=== PATIENT | female | born 1940 | race Caucasian/White ===

== ENCOUNTER → 2018-03-23 10:08 | Outpatient (BNVA) | payer MEDICARE, SELFPAY | PROVIDERS: PCP Family Medicine; Visit Provider Orthopaedic Surgery | DX: M17.11 Unilateral primary osteoarthritis, right knee (principal) | CPT/HCPCS: 20610; 99211; 99213; J1040 ==

== ENCOUNTER → 2018-07-29 09:46 | Outpatient (BNVA) | payer MEDICARE, SELFPAY | PROVIDERS: PCP Family Medicine; Referring Provider Family Medicine; Visit Provider Orthopaedic Surgery | DX: M17.11 Unilateral primary osteoarthritis, right knee (principal) | CPT/HCPCS: 20610; 99211; 99213; J1040 ==

== ENCOUNTER 2018-08-26 10:37 | Outpatient (CLI) | payer MEDICARE, SELFPAY ==
[2018-08-26 12:25] LABS: Bilirubin Negative (Negative); Blood Negative (Negative); Clarity Clear; Glucose Negative (Negative); Ketones Negative (Negative); Leukocyte Esterase Negative (Negative); Nitrite Negative (Negative); Urobilinogen 0.2 EU/dL (Up TO 0.2); pH 7.5 (5-8)
[2018-08-26 12:35] LABS: Abs Immature Grans 0.01 k/cumm (0.0-0.09); Absolute Basophil Count 0.04 k/cumm (0.0-0.2); Absolute Eosinophil Count 0.19 k/cumm (0.0-0.7); Absolute Lymphocyte Count 1.68 k/cumm (1.2-3.4); Absolute Monocyte Count 0.59 k/cumm (0.11-0.7); Absolute Neutrophil Count 3.82 k/cumm (1.2-6.7); Basophils % 0.6; HCT 43.3 % (36.0-46.0); Immature Grans % 0.2; Lymphocytes % 26.5; Mean Corp. HGB Concentration 32.3 g/dL (32.0-36.0); Mean Corpuscular Hemoglobin 29.4 pg (27.0-33.0); Mean Platelet Volume 11.5 fL (8.0-11.0); Monocytes % 9.3; Neutrophils % 60.4; Platelet Count 260 x1000/uL (130-400); RBC 4.76 m/cumm (4.00-5.20); White Blood Cell Count 6.33 k/cumm (4.4-10.8)
[2018-08-26 13:19] LABS: BUN 17 mg/dL (7-18); Chloride 101 mmol/L (98-107); Glucose 95 mg/dL (70-100); Potassium 3.7 mmol/L (3.5-5.1); Sodium 141 mmol/L (136-145)
== END 2018-08-26 10:57 ==
PROVIDERS: PCP Family Medicine; Visit Provider Orthopaedic Surgery
DX: M25.561 Pain in right knee (principal); M17.11 Unilateral primary osteoarthritis, right knee; I10 Essential (primary) hypertension; Z01.818 Encounter for other preprocedural examination
CPT/HCPCS: 36415; 80051; 82947; 84520; 81003; 82565; 85025; 93005; 93010

== ENCOUNTER 2018-09-08 05:56 | Inpatient (IN) | payer MEDICARE, SELFPAY ==
[2018-09-08] VITALS (16 sets, daily range): BP systolic 105–150; BP diastolic 67–105; PULSE 80–97; RESP 9–20; TEMP 36.6–37.4; O2SAT 31–96
[2018-09-08] MEDS: Lactated Ringers 1,000 ML 80 ML IV ×2 (06:41→09:44)
[2018-09-08] MEDS: Bupivacaine 0.25% Pres-Free 30 ML VIAL ×2 (07:10→09:12)
[2018-09-08] MEDS: Bupivacaine LIPOSOME/PF 133 MG/10 ML VIAL IJ (07:10)
[2018-09-08] MEDS: ceFAZolin 2 GM/50 ML BAG IVPB (07:33)
[2018-09-08] MEDS: Hydrogen Peroxide 3% 480 ML BTL (08:39)
--- NOTE | 2018-09-08 10:18 | DI.RAD_ITS ---
SYMPTOM/DIAGNOSIS: RT TOTAL KNEE ARTHROPLASTY,DJD RT KNEE RIGHT KNEE: AP and lateral projections post op reveal a TKA, the components of which are in excellent position. Surrounding bone intact.
--- NOTE | 2018-09-08 11:27 | ROE_ITS ---
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 PROCEDURE: Right total knee arthroplasty, cemented. SURGEON: Yazan Smith M.D. ASSESSMENT: Honey Gutierrez PA-C ANESTHESTETIC: Adductor canal block followed by general via LMA by Radha Rashid CRNA PREP: ChloraPrep. INDICATIONS: This patient is a 78-year-old female who has failed conservative management for osteoarthritis involv ing her right knee. On her radiographs, she had primary involvement of the medial compartment with an associated varus deformity. There was also severe patellofemoral arthritis. She had failed response to Synvisc and corticosteroids. She was anxious to proceed with surgical intervention. She wanted to be able to be recovered by late spring because she enjoys spending her [place] a campground. I rev iewed with the patient and her the planned operative procedure, its risks and benefits. They understood and wished to proceed. I saw the patient in the [facility] area, and marked her r ight leg. I re-reviewed the planned operative intervention. She consented to an adductor canal block, followed by General anesthesia. DESCRIPTION OF PROCEDURE: The patient was brought to Operating Suite, after the Adductor canal block was performed. She then un derwent uneventful induction of general anesthesia via LMA. She received 2 grams of Ancef as a prophy lactic antibiotic. A pneumatic tourniquet was applied to her proximal thigh. After the right lower extremity was prepped and draped, and after timeout was instituted verifying the planned procedure, t he limb was elevate to exsanguinate it for 2 minutes. I then inflated the tourniquet to 380 mmHg. andana anterior approach for a total knee arthroplasty was utilized. The skin and subcutaneous tissue s were incised and hemostasis was controlled by electrocautery. A medial parapatellar arthrotomy was performed. The superficial medial collateral ligament was carefu lly elevated off the tibia, and a subperiosteal release so as to prevent any injury to the ligamentou s structure. 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 She had a significant flexion contracture and as a result, I felt that she would need urbano e soft tissue releases posteriorly, as well as more generous distal femoral resection. I used an intramedullary guide robyn to resect the distal femur with a 6-degree valgus bushing. This wa s done after osteophytes over the medial compartment, lateral compartment and the patellofemoral join t were trimmed with a rongeur and smoothed with a file. A 12-mm distal femoral resection cut was done . Anterior and posterior cuts were then made and I felt that a size 3 [employer] femoral component whi ch was posterior cruciate retaining would have the most appropriate fit. The trial prosthesis fit wel l. Next, the tibial plateau was assessed. The ACL had been resected at the beginning of the procedure an d the medial meniscus had also been resected. I then performed a complete lateral meniscectomy. The p opliteus tendon was identified and protected. Using an external alignment jig, a 3-degree posterior s everardo cut was made on the proximal tibia. This was done by first centering the alignment jig over the center part of the knee and adjusting for the varus deformity. Therefore, this resected more bone fro m the lateral compartment than the medial compartment. It was felt that a size 3 tibial component wou ld have the most appropriate fit. A reduction was performed with the tibial tray and 10 mm insert, an d the knee came out to full extension and flexion. Care was taken to remove bone that extended medial ly on the femur beyond the posterior condyles of the femoral component. This resulted in resecting ab out 3 millimeters of bone. I also carefully elevated the gastrocnemius origin with a 1/2-inch periost eal elevator. The patella was measured with a caliper, it measured approximately 20.5 millimeters. T his was indicative of the significant patellofemoral arthritis. I used a combination of a cutting ji g and a freehand technique to resect the patellar surface flat. It was felt that a 35-mm Tripronged p olyethylene component would have the most appropriate fit. Holes were drilled for the fixation lugs of the trial insert and the thickness of the patella was res tored at 22 millimeters, thereby thickening it by 1.5 millimeters. The knee was carefully irrigated a nd all extraneous debris, osteophytes and loose bodies were removed. The tibial component was cemente d with methylmethacrylate containing gentamicin. This was mixed in a vacuum chamber and then placed. The actual size 3 tibial component fit well. Prior to its insertion, instrumentation was used to cre ate a channel for the tibial rotating platform Polyethylene insert. After the cement cured over the c ourse of 12 minutes. Care was taken to make sure any extraneous cement had been removed. I then mixed a second batch of Methylmethacrylate with gentamicin for cementation of the femoral and patellar com ponents. This also was a size 3 posture cruciate retaining component. Standard pressurization techni ques were utilized and extraneous cement was removed. The cement was allowed to cure. The interface b etween the femoral component and the femur, and the tibial component and the tibia looked excellent. There was good interdigitation. There was no extraneous cement. Likewise, the patellar component show ed good fixation. The knee was cycled through a range of motion with a trial 10-mm thick Polyethylene insert. There was no evidence of bearing spinout. There was no evidence that there was excessive tig htness of the posterior capsule or MCL. The actual size 10 x size 3 rotating platform tibial insert w as placed. The patella was reduced and the knee cycled through a range of motion. There is no evidenc e of bearing spinout. There was no restriction in flexion or extension. AT this point a Betadine irrigation protocol was instituted. Dilute Betadine consisting of 17.5 cc an d 500 cc of saline was placed in the knee over a course of 3 minutes. This was followed by irrigation with sterile saline of 1000 cc. The medial parapatellar arthrotomy was then closed with sutures of # 1- Vicryl in a [id number] fashion. The proximal quad tendon was closed in two layers. The perite non was closed over the medial incision with #2-0 Vicryl. The subcutaneous tissues were closed with # 2-0 Vicryl. At this point, tranexamic acid 3 grams and 100 cc of saline was placed intra-articularly through an # 18-guage needle to minimize blood loss postoperatively. The skin was closed with vesta. The tourniq uet was deflated. Hemostasis was under control. There was excellent return of circulation to the foot . The wound was dressed with Xeroform gauze, 4x4s, ABD Pads, a 6-inch confirming gauze bandage, two 6 -inch Roger wraps, a Cryo/Cuff, commercial knee immobilizer. The patient was taken to the [facility] in satisfactory condition tolerating the procedure well. ESTIMATED BLOOD LOSS: Blood loss was essentially zero.
[2018-09-08] MEDS: POTASSIUM CHLORIDE/D5-0.9%NACL 1,000 ML 100 MEQ IV ×2 (11:47→21:06)
[2018-09-08] MEDS: Acetaminophen 325 MG TAB 650 MG PO ×2 (14:52→21:11)
--- NOTE | 2018-09-08 16:47 | PT.INIE ---
Date of service: 09/08/18 Time of Service: 13:02 PT Notes Inpatient Physical Therapy Evaluation Date: 09/08/2018 Referring Doctor: Yazan Morgan MD PT Orders: PT CONSULT: 78-year-old white female status post right total knee arthroplasty 09/08/2018. Up in chair today if comfortable and patient is willing. Weightbearing as tolerated on right with walker. CPM and Cryocuff protocols Precautions: Fall. Standard. WBAT on right LE. Knee immobilizer on when OOB. 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 She is status post cemented right total knee arthroplasty referred to physical therapy on postoperative day 0 for functional mobility training, joint range of motion and strengthening, gait and balance training, and patient education and training. PMHX: Medical History Anxiety (Chronic) Anemia (Chronic) GI bleed (Chronic) Surgical Histry History of colonoscopy (Chronic) History of esophagogastroduodenoscopy (EGD) (Chronic) Social History/Home Situation: Patient lives with Seth in a 2-floor house with 1 step to enter, no rail on either side. She is independent with all aspects of ADLs without use of any adaptive equipment nor assistive ambulatory device although she states that she has a straight cane that she very rarely uses. Current Functional Limitations: Patient requires physical assistance and front wheeled walker for all transfers and ambulation tasks. Equipment Owned/DME: [place] Subjective: Patient and daughter was present when this PT came in for physical therapy evaluation and treatment which patient were agreeable to. Patient reports no pain on right LE but states that the right knee feels stiff and tight. She denies dizziness/lightheadedness as well as nausea when seated at edge of bed and with ambulation activity. Objective: General Observation: IV in the right UE. Mandel catheter in place. Anti-DVT pump on left leg. Cryocuff on right knee with right knee immobilizer open. DAREN wraps from mid thigh through distal leg. Mental Status: Alert and oriented x3 Pain: 0/10. Vital Signs: 136/79 mmHg, 95% on 1 L of oxygen, 90 bpm. ROM: Right Upper Extremity: Shoulder Flexion WFL. Shoulder abduction WFL. Elbow flexion WFL. Wrist flexion WFL. Functional opening and closing of hand WFL. Left Upper Extremity: Shoulder Flexion WFL. Shoulder abduction WFL. Elbow flexion WFL. Wrist flexion WFL. Functional opening and closing of hand WFL. Right Lower Extremity: Hip flexion 0-90 degrees. Hip abduction WFL. Knee flexion 0-90 degrees with active range of motion slightly limited by DAREN wraps. Knee extension -20 degrees. Ankle dorsiflexion WFL. Ankle plantarflexion WFL. Patient was able to perform straight leg raises with right knee immobilizer on to about 60 degrees painlessly. Left Lower Extremity: Hip flexion WFL. Hip abduction WFL. Knee flexion WFL. Ankle dorsiflexion WFL. Ankle plantarflexion WFL. STRENGTH: Right Upper Extremity: Shoulder flexors 4+/5. Shoulder abductors 4+/5. Elbow flexors 4+/5. Elbow extensors 4+/5. Hardware Test Engineer strong. Left Upper Extremity: Shoulder flexors 4+/5. Shoulder abductors 4+/5. Elbow flexors 4+/5. Elbow extensors 4+/5. Hardware Test Engineer strong. Right Lower Extremity: Hip flexors 3-/5. Hip abductors 4/5. Knee flexors3-/5. Knee extensors 3-/5. Ankle dorsiflexors 4/5. Ankle plantarflexors 4/5. Left Lower Extremity:Hip flexors 5/5. Hip abductors 5/5. Knee flexors 5/5. Knee extensors 5/5. Ankle dorsiflexors 5/5. Ankle plantarflexors 5/5. Sensation: Intact to bilateral LEs as to pain and pressure BED MOBILITY LEVELS/TRANSFERS: Rolling CGA Supine to sit minimal assist. Patient's blood pressure did shoot up to 147/19 mmHg upon sitting up but with the rest went back down to 123/82 mmHg. Nurse updated. Sit to supine minimal assist Sit to stand minimal assist. Patient was saturating very well at 94-96% at 1 L and so nurse decided to take off oxygen at the start of this activity. Stand to sit minimal assist Bed to chair minimal assist Chair to bed minimal assist Gait: Patient tolerated level surface in room ambulation for 5 steps forward and 5 steps backward using FWW with minimal assist of PT and standby assist of an [employer] for safety with knee immobilizer on the right. No complaints of dizziness nor lightheadedness were received. Patient states no increase in pain level during and after activity. Blood pressure after activity was 134/80 3 mmHg with with 92% on room air and 103 bpm. Balance: Static Sitting: Good Dynamic Sitting: Good Static Standing: Fair Dynamic Standing: Fair Special Tests: Mobility Limitations Standardized Measure [facility] AM-PAC 6 clicks Basic Mobility Inpatient Short Form: Raw Score: 17 CMS Score: 50.57% deficit Informed Consent/Education: Patient instructed in purpose of PT consult and plan of care. Patient and family were also educated about the benefits of the use of CPM machine in terms of reducing pain, stiffness, and swelling while maximizing passive range of motion on the right knee joint. Patient was also instructed about quadriceps setting on the right held for 5 counts each time repeated 5-10 times while in bed when CPM is not in use. Assessment: Assessment: Patient is a 78 year old female referred to physical therapy services with the diagnosis of end-stage osteoarthritis of the right knee with right knee flexion contracture and varus deformity status post cemented right total knee arthroplasty on postoperative day 0. Patient presents with clinical signs and symptoms consistent with current/admitting diagnoses and postoperative status that have resulted to mobility limitations, gait instability, generalized weakness, and impairment/limitation of motor control as demonstrated by the following impairment level findings: 1. Decreased strength to R LE major muscle groups 2. Impaired sitting/standing balance 3. Impaired activity tolerance 4. Limitation of joint range of motion in right knee 5. Stiffness/tightness in her right knee Impairments are contributing to the following functional limitations: 1. Dependent bed mobility skills 2. Increased dependence with transfers 3. Inability to safely ambulate without assistive device and physical assistance 4. Increase completion time for mobility ADL performance 5. Increased fall risk 6. Inability to negotiate steps alone safely Patient is assessed as a Moderate 25763 complexity based on the following: History: Patient is a 78-year-old female with end-stage osteoarthritis of right knee with right knee flexion contracture and varus deformity status post cemented right total knee arthroplasty who previously was independent with all aspects of ADLs with good family support. Examination: Underlying impairments and functional limitations resulting to AM?PAC score of 17 and an equivalent CMS score of 50.57% deficit Presentation: Evolving Decision Makin moderate complexity Goals: Goals X1 week 1. Supine-Sit independent 2. Sit-Supine independent 3. Sit-Stand independent 4. Stand-Sit independent 5. Bed-Chair independent 6. Chair-Bed independent 7. Independent gait on level surface with use of least restrictive device for at least 300 feet without report of pain nor dyspnea 8. Independent stair negotiation while holding onto bilateral rails for at least 10 steps without report of pain nor dyspnea 9. Independent with home exercise program 10. Good static and dynamic standing balance/tolerance Plan of Care/Treatment Plan: 1-2x/day, 7 days/week x 1 week. Plan of care has been reviewed with the ACID PURIFIER providing the service under Physical Therapy direction. Initiate Physical Therapy intervention for strengthening, bed mobility, transfers, gait, stairs, balance training, use of assistive device. DISCHARGE RECOMMENDATIONS: Patient will benefit from the use of a front wheeled walker at discharge destination. Patient and family are very much looking forward to having patient go home as soon as possible so it is highly recommended that home health physical therapy follows her up for continued functional mobility training, home safety evaluation, and patient/family/caregiver education and training for fall reduction strategies. TREATMENT CODE/TIME: 9716 230 minutes, 74531 38 minutes, 33996 10 minutes beginning at 13:02 PM. Thank you very much for this referral. Aura Oreilly, PT, DPT, CLT [facility], PT and associates
--- NOTE | 2018-09-08 17:22 | IN_ITS ---
Date of service: 09/08/18 Time of Service: 13:02 PT Notes Inpatient Physical Therapy Evaluation Date: 09/08/2018 Referring Doctor: Yazan Morgan MD PT Orders: PT CONSULT: 78-year-old white female status post right total knee arthroplasty 09/08/2018. Up in chair today if comfortable and patient is willing. Weightbearing as tolerated on right with walker. CPM and Cryocuff protocols Precautions: Fall. Standard. WBAT on right LE. Knee immobilizer on when OOB. 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 She is status post cemented right total knee arthroplasty referred to physical therapy on postoperative day 0 for functional mobility training, joint range of motion and strengthening, gait and balance training, and patient education and training. PMHX: Medical History Anxiety (Chronic) Anemia (Chronic) GI bleed (Chronic) Surgical Histry History of colonoscopy (Chronic) History of esophagogastroduodenoscopy (EGD) (Chronic) Social History/Home Situation: Patient lives with Seth in a 2-floor house with 1 step to enter, no rail on either side. She is independent with all aspects of ADLs without use of any adaptive equipment nor assistive ambulatory device although she states that she has a straight cane that she very rarely uses. Current Functional Limitations: Patient requires physical assistance and front wheeled walker for all transfers and ambulation tasks. Equipment Owned/DME: OR Subjective: Patient and daughter was present when this PT came in for physical therapy evaluation and treatment which patient were agreeable to. Patient reports no pain on right LE but states that the right knee feels stiff and tight. She denies dizziness/lightheadedness as well as nausea when seated at edge of bed and with ambulation activity. Objective: General Observation: IV in the right UE. Mandel catheter in place. Anti-DVT pump on left leg. Cryocuff on right knee with right knee immobilizer open. DAREN wraps from mid thigh through distal leg. Mental Status: Alert and oriented x3 Pain: 0/10. Vital Signs: 136/79 mmHg, 95% on 1 L of oxygen, 90 bpm. ROM: Right Upper Extremity: Shoulder Flexion WFL. Shoulder abduction WFL. Elbow flexion WFL. Wrist flexion WFL. Functional opening and closing of hand WFL. Left Upper Extremity: Shoulder Flexion WFL. Shoulder abduction WFL. Elbow flexion WFL. Wrist flexion WFL. Functional opening and closing of hand WFL. Right Lower Extremity: Hip flexion 0-90 degrees. Hip abduction WFL. Knee flexion 0-90 degrees with active range of motion slightly limited by DAREN wraps. Knee extension -20 degrees. Ankle dorsiflexion WFL. Ankle plantarflexion WFL. Patient was able to perform straight leg raises with right knee immobilizer on to about 60 degrees painlessly. Left Lower Extremity: Hip flexion WFL. Hip abduction WFL. Knee flexion WFL. Ankle dorsiflexion WFL. Ankle plantarflexion WFL. STRENGTH: Right Upper Extremity: Shoulder flexors 4+/5. Shoulder abductors 4+/5. Elbow flexors 4+/5. Elbow extensors 4+/5. Mitering Machine Operator strong. Left Upper Extremity: Shoulder flexors 4+/5. Shoulder abductors 4+/5. Elbow flexors 4+/5. Elbow extensors 4+/5. Mitering Machine Operator strong. Right Lower Extremity: Hip flexors 3-/5. Hip abductors 4/5. Knee flexors3-/5. Knee extensors 3-/5. Ankle dorsiflexors 4/5. Ankle plantarflexors 4/5. Left Lower Extremity:Hip flexors 5/5. Hip abductors 5/5. Knee flexors 5/5. Knee extensors 5/5. Ankle dorsiflexors 5/5. Ankle plantarflexors 5/5. Sensation: Intact to bilateral LEs as to pain and pressure BED MOBILITY LEVELS/TRANSFERS: Rolling CGA Supine to sit minimal assist. Patient's blood pressure did shoot up to 147/19 mmHg upon sitting up but with the rest went back down to 123/82 mmHg. Nurse updated. Sit to supine minimal assist Sit to stand minimal assist. Patient was saturating very well at 94-96% at 1 L and so nurse decided to take off oxygen at the start of this activity. Stand to sit minimal assist Bed to chair minimal assist Chair to bed minimal assist Gait: Patient tolerated level surface in room ambulation for 5 steps forward and 5 steps backward using FWW with minimal assist of PT and standby assist of an PIE BAKERY LABORER for safety with knee immobilizer on the right. No complaints of dizziness nor lightheadedness were received. Patient states no increase in pain level during and after activity. Blood pressure after activity was 134/80 3 mmHg with with 92% on room air and 103 bpm. Balance: Static Sitting: Good Dynamic Sitting: Good Static Standing: Fair Dynamic Standing: Fair Special Tests: Mobility Limitations Standardized Measure [facility] AM-PAC 6 clicks Basic Mobility Inpatient Short Form: Raw Score: 17 CMS Score: 50.57% deficit Informed Consent/Education: Patient instructed in purpose of PT consult and plan of care. Patient and family were also educated about the benefits of the use of CPM machine in terms of reducing pain, stiffness, and swelling while maximizing passive range of motion on the right knee joint. Patient was also instructed about quadriceps setting on the right held for 5 counts each time repeated 5-10 times while in bed when CPM is not in use. Assessment: Assessment: Patient is a 78 year old female referred to physical therapy services with the diagnosis of end-stage osteoarthritis of the right knee with right knee flexion contracture and varus deformity status post cemented right total knee arthroplasty on postoperative day 0. Patient presents with clinical signs and symptoms consistent with current/admitting diagnoses and postoperative status that have resulted to mobility limitations, gait i nstability, generalized weakness, and impairment/limitation of motor control as demonstrated by the following impairment level findings: 1. Decreased strength to R LE major muscle groups 2. Impaired sitting/standing balance 3. Impaired activity tolerance 4. Limitation of joint range of motion in right knee 5. Stiffness/tightness in her right knee Impairments are contributing to the following functional limitations: 1. Dependent bed mobility skills 2. Increased dependence with transfers 3. Inability to safely ambulate without assistive device and physical assistance 4. Increase completion time for mobility ADL performance 5. Increased fall risk 6. Inability to negotiate steps alone safely Patient is assessed as a Moderate 65487 complexity based on the following: History: Patient is a 78-year-old female with end-stage osteoarthritis of right knee with right knee flexion contracture and varus deformity status post cemented right total knee arthroplasty who previously was independent with all aspects of ADLs with good family support. Examination: Underlying impairments and functional limitations resulting to AM?PAC score of 17 and an equivalent CMS score of 50.57% deficit Presentation: Evolving Decision Makin moderate complexity Goals: Goals X1 week 1. Supine-Sit independent 2. Sit-Supine independent 3. Sit-Stand independent 4. Stand-Sit independent 5. Bed-Chair independent 6. Chair-Bed independent 7. Independent gait on level surface with use of least restrictive device for at least 300 feet without report of pain nor dyspnea 8. Independent stair negotiation while holding onto bilateral rails for at least 10 steps without report of pain nor dyspnea 9. Independent with home exercise program 10. Good static and dynamic standing balance/tolerance Plan of Care/Treatment Plan: 1-2x/day, 7 days/week x 1 week. Plan of care has been reviewed with the DIRECTOR OF CARDIAC CATH LAB providing the service under Physical Therapy direction. Initiate Physical Therapy intervention for strengthening, bed mobility, transfers, gait, stairs, balance training, use of assistive device. DISCHARGE RECOMMENDATIONS: Patient will benefit from the use of a front wheeled walker at discharge destination. Patient and family are very much looking forward to having patient go home as soon as possible so it is highly recommended that home health physical therapy follows her up for continued functional mobility training, home safety evaluation, and patient/family/caregiver education and training for fall reduction strategies. TREATMENT CODE/TIME: 9716 230 minutes, 65413 38 minutes, 32577 10 minutes beginning at 13:02 PM. Thank you very much for this referral. Aura Oreilly, PT, DPT, CLT [facility]
[2018-09-09] MEDS: Acetaminophen 325 MG TAB 650 MG PO ×2 (02:25→08:40)
[2018-09-09] MEDS: POTASSIUM CHLORIDE/D5-0.9%NACL 1,000 ML 100 MEQ IV (06:41)
[2018-09-09 07:24] LABS: HCT 35.4 % (36.0-46.0); HGB 11.1 g/dL (12.0-15.5); Mean Corp. HGB Concentration 31.4 g/dL (32.0-36.0); Mean Corpuscular Hemoglobin 29.5 pg (27.0-33.0); Mean Corpuscular Volume 94.1 fL (80-95); Mean Platelet Volume 11.8 fL (8.0-11.0); Platelet Count 154 x1000/uL (130-400); RBC 3.76 m/cumm (4.00-5.20); RBC Distribution Width 13.2 % (11.7-14.6); White Blood Cell Count 9.45 k/cumm (4.4-10.8)
[2018-09-09 07:26] LABS: Anion Gap 7.2 mmol/L (3-11); BUN 16 mg/dL (7-18); CO2 28.8 mmol/L (21.0-32.0); Calcium 8.3 mg/dL (8.5-10.1); Chloride 106 mmol/L (98-107); Glucose 126 mg/dL (70-100); Potassium 3.8 mmol/L (3.5-5.1); Sodium 142 mmol/L (136-145)
[2018-09-09 07:55] VITALS: BP 111/73; PULSE 90; RESP 18; TEMP 38.3; O2SAT 92
--- NOTE | 2018-09-09 08:11 | PDOC.CMIN ---
- If Service Date Differs Date of service: 09/09/18 Time of Service: 08:11 Care Management Initial Assess REASON FOR HOSPITALIZATION:: Right Total Knee Arthroplasty PAST MEDICAL HISTORY/PAST SURGICAL HISTORY:: Past Medical History: Anemia, Anxiety, GI Bleed, h/o heart murmur. Past Surgical History: Colonoscvopy, EGD PREVIOUS FUNCTIONAL STATUS/SOCIAL/FAMILY SUPPORTS:: Lluvia lives in a single family house with her Seth. Although the house has 2 levels, they only occupy the first floor, the second being used for storage.She has 2 daughters who live outside of the home and has strong family support. She also has 3 grandsons and 1 granddaughter and 2 great granddaughters. Lluvia is independent with all ADLs and continues to drive. CURRENT FUNCTIONAL STATUS:: Lluvia was sitting up in a chair, smiling and laughing, visiting with her family during CM visit. She did very well with PT. She states her pain was a 6/10 but is now about a 4/10. ADVANCE DIRECTIVES:: Lluvia does not have Advanced Directives but requested and was given 2 copies of the [facility] Advanced Directives forms. Has patient been provided with information about the portal?: No Did the patient sign up for the portal?: No (not interested) CODE STATUS:: Full Code INSURANCE COVERAGE / FINANCIAL ISSUES:: Medicare. Financial Assist 100 CURRENT HOME/COMMUNITY SERVICES/EQUIPMENT:: None PRIMARY CARE PHYSICIAN:: Kelsey Hernandez MD POTENTIAL DISCHARGE NEEDS:: Lluvia needs a walker which her daughter purchased and brought to the hospital to be available for discharge. PATIENT/FAMILY EDUCATION NEEDS:: Discharge plan, limitations, follow up plan of care, Ask me Three. ANTICIPATED BARRIERS TO DISCHARGE:: None TRANSPORTATION:: Via private automobile with . PLAN:: Lluvia will be discharged home and receive PT on an outpatient basis. She will follow up with her PCP and surgeon and prescribed plan of care.
--- NOTE | 2018-09-09 08:18 | INITIAL_ITS ---
- If Service Date Differs Date of service: 09/09/18 Time of Service: 08:11 Care Management Initial Assess REASON FOR HOSPITALIZATION:: Right Total Knee Arthroplasty PAST MEDICAL HISTORY/PAST SURGICAL HISTORY:: Past Medical History: Anemia, Anxiety, GI Bleed, h/o heart murmur. Past Surgical History: Colonoscvopy, EGD PREVIOUS FUNCTIONAL STATUS/SOCIAL/FAMILY SUPPORTS:: Lluvia lives in a single family house with her Seth. Although the house has 2 levels, they only occupy the first floor, the second being used for storage.She has 2 daughters who live outside of the home and has strong family support. She also has 3 gra ndsons and 1 granddaughter and 2 great granddaughters. Lluvia is independent with all ADLs and continues to drive. CURRENT FUNCTIONAL STATUS:: Lluvia was sitting up in a chair, smiling and laughing, visiting with her family during CM visit. She did very well with PT. She states her pain was a 6/10 but is now about a 4/10. ADVANCE DIRECTIVES:: Lluvia does not have Advanced Directives but requested and was given 2 copies of the [facility] Advanced Directives forms. Has patient been provided with information about the portal?: No Did the patient sign up for the portal?: No (not interested) CODE STATUS:: Full Code INSURANCE COVERAGE / FINANCIAL ISSUES:: Medicare. Financial Assist 100 CURRENT HOME/COMMUNITY SERVICES/EQUIPMENT:: None PRIMARY CARE PHYSICIAN:: Kelsey Hernandez MD POTENTIAL DISCHARGE NEEDS:: Lluvia needs a walker which her daughter purchased and brought to the hospital to be available for discharge. PATIENT/FAMILY EDUCATION NEEDS:: Discharge plan, limitations, follow up plan of care, Ask me Three. ANTICIPATED BARRIERS TO DISCHARGE:: None TRANSPORTATION:: Via private automobile with . PLAN:: Lluvia will be discharged home and receive PT on an outpatient basis. She will follow up with her PCP and surgeon and prescribed plan of care.
--- NOTE | 2018-09-09 08:27 | W.PM.PROGNOT ---
Date of Service Date of service: 09/09/18 Time of Service: 08:27 Assessment and Plan (1) History of total right knee replacement: Current visit: Yes Status: Acute Status postoperative course for right total knee arthroplasty patient is anxious to go home and she feels she has lots of support however I think her block is still in place and I think it would be prudent to wait at least until this afternoon to see how she is doing. We will get rid of the Mandel catheter in her IV in the interim. She is taking Tylenol for the discomfort according to the nurse. Subjective Interval history since last seen: Feeling well patient is very anxious to go home she feels she has lots of support at home. However she is not able to get out of bed. She still has a Mandel catheter in in her IV and. She has not required any IV pain medications Exam Extrem Other: She has no unusual swelling of her right lower extremity. Neurovascular exam is intact. Objective Objective Clinical Data: Abnormal lab results 09/09/18 09/09/18 Range/Units 06:40 06:40 RBC 3.76 L (4.00-5.20) m/cumm Hgb 11.1 L (12.0-15.5) g/dL Hct 35.4 L (36.0-46.0) % MCHC 31.4 L (32.0-36.0) g/dL MPV 11.8 H (8.0-11.0) fL Glucose 126 H (70-100) mg/dL Calcium 8.3 L (8.5-10.1) mg/dL Vital Signs Temperature 98.8 F 09/08/18 23:45 Temperature Source Tympanic 09/08/18 23:45 Pulse 86 09/08/18 23:45 Pulse Rhythm Regular 09/09/18 01:05 Respiratory Rate 17 09/08/18 23:45 Respiratory Effort Non-Labored 09/09/18 01:05 Respiratory Depth Normal 09/09/18 01:05 Respiratory Pattern Normal 09/09/18 01:05 Blood Pressure 105/68 09/08/18 23:45 Pulse Oximetry 94 L 09/08/18 23:45 Respiratory End-tidal CO2 33 09/08/18 10:45 Oxygen Delivery Method Room Air 09/08/18 23:45 Oxygen Flow Rate 0 09/08/18 23:45 Pain Level 8 09/09/18 02:25 Intake & Output 09/08/18 09/08/18 09/09/18 11:59 23:59 11:59 Intake Total 1250 / 3250 2000 / 3250 1158.333 / 1158.333 Output Total 50 / 1000 950 / 1000 Balance 1200 / 2250 1050 / 2250 1158.333 / 1158.333 Weight 184 lb 11.958 oz Intake: IV 1250 / 3250 2000 / 3250 1158.333 / 1158.333 Output: Urine 50 / 1000 950 / 1000 Other: Urine Color Yellow Yellow Urine Appearance Clear Clear Clear Comment NOT EMPTIED IN PACU Emesis Description None Laboratory Results WBC 9.45 k/cumm (4.4-10.8) 09/09/18 06:40 RBC 3.76 m/cumm (4.00-5.20) L 09/09/18 06:40 Hgb 11.1 g/dL (12.0-15.5) L 09/09/18 06:40 Hct 35.4 % (36.0-46.0) L 09/09/18 06:40 MCV 94.1 fL (80-95) 09/09/18 06:40 MCH 29.5 pg (27.0-33.0) 09/09/18 06:40 MCHC 31.4 g/dL (32.0-36.0) L 09/09/18 06:40 RDW 13.2 % (11.7-14.6) 09/09/18 06:40 Plt Count 154 x1000/uL (130-400) D 09/09/18 06:40 MPV 11.8 fL (8.0-11.0) H 09/09/18 06:40 Sodium 142 mmol/L (136-145) 09/09/18 06:40 Potassium 3.8 mmol/L (3.5-5.1) 09/09/18 06:40 Chloride 106 mmol/L (98-107) 09/09/18 06:40 Carbon Dioxide 28.8 mmol/L (21.0-32.0) 09/09/18 06:40 Anion Gap 7.2 mmol/L (3-11) 09/09/18 06:40 BUN 16 mg/dL (7-18) 09/09/18 06:40 Creatinine 0.70 mg/dL (0.55-1.02) 09/09/18 06:40 Estimated GFR/1.73 m2 >= 60.00 (mL/min/1.73m2) 09/09/18 06:40 Glucose 126 mg/dL (70-100) H 09/09/18 06:40 Calcium 8.3 mg/dL (8.5-10.1) L 09/09/18 06:40
[2018-09-09] MEDS: Enoxaparin 30 MG/0.3 ML SYR SC (08:38)
[2018-09-09] MEDS: Lisinopril 20 MG TAB PO (08:39)
[2018-09-09] MEDS: Multivitamin w/Minerals TAB 1 TAB PO (08:40)
[2018-09-09] MEDS: Docusate Sodium 100 MG CAP PO (08:41)
[2018-09-09] MEDS: hydroCHLOROthiazide 25 MG TAB PO (08:41)
[2018-09-09] MEDS: Pantoprazole 40 MG TABCR PO (08:41)
[2018-09-09] MEDS: Citalopram 20 MG TAB PO (08:41)
[2018-09-09 11:35] VITALS: BP 112/74; PULSE 93; RESP 16; TEMP 38; O2SAT 93
--- NOTE | 2018-09-09 12:29 | PT.INDS ---
Date of service: 09/09/18 Time of Service: 09:45 PT Notes Date: 09/09/2018 Referring Doctor: Yazan Morgan MD PT Orders: PT CONSULT: 78-year-old white female status post right total knee arthroplasty 09/08/2018. Up in chair today if comfortable and patient is willing. Weightbearing as tolerated on right with walker. CPM and Cryocuff protocols Precautions: Fall. Standard. WBAT on right LE. Knee immobilizer on when OOB. 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 She is status post cemented right total knee arthroplasty and has participated in PT intervention for 2 sessions in the past 2 days. PMHX: Medical History Anxiety (Chronic) Anemia (Chronic) GI bleed (Chronic) Social History/Home Situation: Patient lives with Seth in a 2-floor house with 1 step to enter, no rail on either side. She is independent with all aspects of ADLs without use of any adaptive equipment nor assistive ambulatory device although she states that she has a straight cane that she very rarely uses. Current Functional Limitations: Patient requires physical assistance and front wheeled walker for all transfers and ambulation tasks. Equipment Owned/DME: ND Subjective: Patient states that she is very anxious to return home. She states that she is feeling good and feels that she can take care of herself at home. Objective: General Observation: IV in the right UE. Right knee immobilizer in place. DAREN wraps from mid thigh through distal leg. Mental Status: Alert and oriented x3 Pain: 0/10. ROM: Right Upper Extremity: Shoulder Flexion WFL. Shoulder abduction WFL. Elbow flexion WFL. Wrist flexion WFL. Functional opening and closing of hand WFL. Left Upper Extremity: Shoulder Flexion WFL. Shoulder abduction WFL. Elbow flexion WFL. Wrist flexion WFL. Functional opening and closing of hand WFL. Right Lower Extremity: Hip flexion 0-90 degrees. Hip abduction WFL. Knee flexion 0-90 degrees with active range of motion slightly limited by DAREN wraps. Knee extension -30 degrees initially; -20 with gentle stretching. Ankle dorsiflexion WFL. Ankle plantarflexion WFL. Left Lower Extremity: Hip flexion WFL. Hip abduction WFL. Knee flexion WFL. Ankle dorsiflexion WFL. Ankle plantarflexion WFL. STRENGTH: Right Upper Extremity: Shoulder flexors 4+/5. Shoulder abductors 4+/5. Elbow flexors 4+/5. Elbow extensors 4+/5. Ventilator Specialist strong. Left Upper Extremity: Shoulder flexors 4+/5. Shoulder abductors 4+/5. Elbow flexors 4+/5. Elbow extensors 4+/5. Ventilator Specialist strong. Right Lower Extremity: Hip flexors 3-/5. Hip abductors 4/5. Knee flexors3/5. Knee extensors 3/5. Ankle dorsiflexors 4/5. Ankle plantarflexors 4/5. Left Lower Extremity:Hip flexors 5/5. Hip abductors 5/5. Knee flexors 5/5. Knee extensors 5/5. Ankle dorsiflexors 5/5. Ankle plantarflexors 5/5. Sensation: Intact to bilateral LEs as to pain and pressure BED MOBILITY LEVELS/TRANSFERS: Supine to sit: independent Sit to supine independent Sit to stand: independent Stand to sit: independent Bed to chair : FWW, knee immobilizer, supervision Gait: Patient ambulates 60 feet with FW W,, supervision only. She is weightbearing as tolerated on the right lower extremity. Stairs: Patient manages therapeutic 4 inches x3 (A ascending and descending) with bilateral upper extremity support to rails and supervision only. Balance: Static Sitting: Good Dynamic Sitting: Good Static Standing: Good Dynamic Standing: Fair Special Tests: Mobility Limitations Standardized Measure [facility] 6 clicks Basic Mobility Inpatient Short Form: Raw Score: 23 CMS Score: 11% deficit Treatment: Today's session consisted of gait and transfer training, followed by instruction in a home exercise program. Patient was instructed in the following exercises for 10 repetitions 3 times per day: 1. Ankle pumps 2. SLR 3. Quad sets 4. Glutes sets 5. L AQ Assessment: Assessment: Patient is a 78 year old female referred to physical therapy services with the diagnosis of end-stage osteoarthritis of the right knee with right knee flexion contracture and varus deformity status post cemented right total knee arthroplasty on postoperative day 1. She presents with significant improvements in mobility, and demonstrates safety and independence sufficient to allow for safe transition back home with assistance from family. She has met her acute rehab goals, and is appropriate for safe D/C home once medically cleared. She'll require ongoing PT intervention via outpatient services. Goals: Goals X1 week 1. Supine-Sit independent (MET) 2. Sit-Supine independent(MET) 3. Sit-Stand independent(MET) 4. Stand-Sit independent(MET) 5. Bed-Chair independent(MET) 6. Chair-Bed independent(MET) 7. Independent gait on level surface with use of least restrictive device for at least 300 feet without report of pain nor dyspnea(PROGRESSING TOWARD WITH PATIENT DEMONSTRATING GOOD INDEPENDENCE WITH 60' AMBULATION) 8. Independent stair negotiation while holding onto bilateral rails for at least 10 steps without report of pain nor dyspnea (PROGRESSING TOWARD, WITH PATIENT DEMONSTRATING SAFETY WITH 4 STEPS 9. Independent with home exercise program (MET) 10. Good static and dynamic standing balance/tolerance(MET) Plan of Care/Treatment Plan: D/C FROM PT SERVICES IN ACUTE CARE SETTING DISCHARGE RECOMMENDATIONS: d/c home with FWW and outpatient PT TREATMENT CODE/TIME: 9:45- 10:15 ([id number], [id number]) Berenice Olsen, PT, DPT [facility]
--- NOTE | 2018-09-09 12:38 | W.PM.DS.N ---
Date of service: 09/09/18 Time of Service: 12:38 DS: Diagnosis Discharge Diagnosis (1) History of total right knee replacement: Status: Acute Discharge Plan Disposition Patient Disposition: HOME Condition: Improving Discharge Details Reason For Visit: RIGHT TOTAL KNEE ARTHROPLASTY Admit Date/Time: 09/08/18 05:56 Admit Provider: Yazan Schmidt Attending Provider: Yazan Schmidt Primary Care Provider: Kelsey Hernandez V Home Meds and New Rx's Prescriptions: Continued lisinopril-hydrochlorothiazide 20-25 mg tablet 1 tab PO DAILY RF: 0 aspirin [Aspirin Low Dose] 81 MG tablet,delayed release (DR/EC) 81 mg PO DAILY RF: 0 citalopram [Celexa] 20 MG tablet 20 mg PO DAILY RF: 0 omeprazole 20 MG capsule,delayed release(DR/EC) 20 mg PO DAILY RF: 0 multivitamin 1 EACH capsule 1 ea PO DAILY RF: 0 cholecalciferol (vitamin D3) [Vitamin D3] 1,000 unit Capsule 1,000 unit PO .NOON RF: 0 Discharge Instructions Additional Instructions: USE YOUR NEW KNEE. YOU MAY PLACE YOUR FULL WEIGHT UPON IT. USE YOUR WALKER FOR BALANCE AND TO PREVENT FALLS. PHYSICAL THERAPY WILL LET YOU KNOW WHEN IT IS SAFE TO GO TO A CANE IN YOUR LEFT (OPPOSITE SIDE FROM THE SURGERY) HAND. PERFORM YOUR EXERCISE ON YOUR OWN IN ADDITION TO PERFORMING THEM WITH PHYSICAL THERAPY. YOU ONLY NEED TO USE YOUR KNEE SPLINT FOR DISCOMFORT. YOU MAY GO WITHOUT IT THE KNEE STARTS FEELING BETTER. CONTINUE TO USE THE CRYOCUFF TO HELP CONTROL PAIN AND SWELLING. IT IS ESPECIALLY HELPFUL BEFORE YOUR PHYSICAL [id number] SESSIONS YOU MAY GET YOUR WOUND WET IN THE SHOWER TOMORROW. PLACE A CHAIR OR STOOL TO REST UPON IN THE SHOWER. THE JULIET MAY GET WET WITH SOAP AND WATER. GENTLY PAT THEM DRY AND COVER THEM WITH GAUZE. IF THE JULIET DON'T CATCH ON YOUR CLOTHING, YOU MAY LEAVE THEM OPEN TO THE AIR, BUT EXPECT SOME DRAINAGE OVER THE NEXT 24-72 HOURS. USE YOUR ELASTIC STOCKINGS DURING THE DAY. THEY MAY BE OFF AT NIGHT FOR SLEEPING. THEY REDUCE SWELLING AND THE RISK OF BLOOD CLOTS. USING BABY POWDER WILL ASSIST IN PLACING THEM ON AND OFF.. TAKE YOUR REGULAR MEDICATIONS BEFORE. IN ADDITION, TAKE A BABY ASPIRIN (81MG) TWICE DAILY FOR THE NEXT 2 WEEKS TO HELP REDUCE THE RISK OF BLOOD CLOTS. TAKE TYLENOL, ADVIL OR ALEVE FOR MILDER PAIN. TYLENOL MAY BE TAKEN AT HE SAME TIME ADVIL, OR AT THE SAME TIME ALEVE THEY ARE METABOLIZED DIFFERENTLY AND ARE NOT CROSS TOXIC. TAKE NORCO (HYDROCODONE 5/325MG) 1-2 EVER 4-6 HOURS FOR MORE SERIOUS PAIN. [facility] REGULATIONS LIMIT THE AMOUNT OF NORCO TO 18 TABLETS. FOLLOW UP WITH PHYSICAL THERAPY ON 09/13/[address] SCHMIDT 1 WEEK LATER. Care Plan Goals: RETURN TO INDEPENDENT AMBULATION Stand Alone Forms: Nursing Discharge Form Referrals: Yazan Schmidt MD [ [facility] STAFF PHYSICIAN] - 09/16/18 2:40 pm Activity:: Activity as Tolerated Equipment/Supplies:: Walker Diet:: As Tolerated Discharge Orders Discharge Orders: Discharge Order (Routine); Ordered 09/09/18 Ordered By: Yazan Schmidt DS: Data Vitals/I&O Vitals and I&O: Vital Signs Temperature 100.4 F H 09/09/18 11:35 Temperature Source Tympanic 09/09/18 11:35 Pulse 93 H 09/09/18 11:35 Pulse Rhythm Regular 09/09/18 07:55 Respiratory Rate 16 09/09/18 11:35 Respiratory Effort 09/09/18 07:55 Respiratory Depth Normal 09/09/18 07:55 Respiratory Pattern Normal 09/09/18 07:55 Blood Pressure 112/74 09/09/18 11:35 Pulse Oximetry 93 L 09/09/18 11:35 Respiratory End-tidal CO2 33 09/08/18 10:45 Oxygen Delivery Method Room Air 09/09/18 11:35 Oxygen Flow Rate 0 09/09/18 11:35 Pain Level 0 09/09/18 11:35 Intake & Output 09/08/18 09/09/18 09/09/18 23:59 11:59 23:59 Intake Total 1999 1518.333 / 1518.333 Output Total 950 / 1000 825 / 1125 300 / 1125 Balance 1050 / 2250 693.333 / 393.333 -300 / 393.333 Intake: IV 1999 1158.333 / 1158.333 Oral 360 / 360 Output: Urine 950 / 1000 825 / 1125 300 / 1125 Other: Urine Color Yellow Yellow Yellow Urine Appearance Clear Clear Voiding Methods Bedside Commode Bedside Commode Labs on day of discharge: Labs from last 24 hours 09/09/18 09/09/18 06:40 06:40 WBC 9.45 RBC 3.76 L Hgb 11.1 L Hct 35.4 L MCV 94.1 MCH 29.5 MCHC 31.4 L RDW 13.2 Plt Count 154 D MPV 11.8 H Sodium 142 Potassium 3.8 Chloride 106 Carbon Dioxide 28.8 Anion Gap 7.2 BUN 16 Creatinine 0.70 Estimated GFR/1.73 m2 >= 60.00 Glucose 126 H Calcium 8.3 L PFSH Medical History H/O cardiac murmur (Acute) Anemia (Chronic) GI bleed (Chronic) Anxiety (Chronic) Surgical History History of colonoscopy (Chronic) History of esophagogastroduodenoscopy (EGD) (Chronic) Social History Smoking/Tobacco Use Status: Former Tobacco Use Drug use: Never
--- NOTE | 2018-09-09 13:41 | W.PM.PROGNOT ---
Date of Service Date of service: 09/09/18 Time of Service: 13:42 Assessment and Plan (1) Primary osteoarthritis of right knee: Current visit: No Status: Chronic Subjective Interval history since last seen: Patient was seen earlier this morning. She is very anxious to go home. She has been cleared by physical therapy as she can go up and down stairs and she is flexing her knee to 90 degrees. Her pain is under control she did have a mildly elevated temperature 38.0 but has been on IV antibiotics until her last dose which was at 8 AM this morning. Therefore I think this is secondary to atelectasis she was told to do incentive spirometry by the nurse but patient has not been doing that diligently. Exam Extrem Other: Patient appears to be perfectly comfortable her is at her side he feels he will be able to adequately care for her at home in addition she has lots of family support the patient already indicates that she will be ready to go to outpatient physical therapy effective for 2218. Objective Objective Clinical Data: Abnormal lab results 09/09/18 09/09/18 Range/Units 06:40 06:40 RBC 3.76 L (4.00-5.20) m/cumm Hgb 11.1 L (12.0-15.5) g/dL Hct 35.4 L (36.0-46.0) % MCHC 31.4 L (32.0-36.0) g/dL MPV 11.8 H (8.0-11.0) fL Glucose 126 H (70-100) mg/dL Calcium 8.3 L (8.5-10.1) mg/dL Vital Signs Temperature 100.4 F H 09/09/18 11:35 Temperature Source Tympanic 09/09/18 11:35 Pulse 93 H 09/09/18 11:35 Pulse Rhythm Regular 09/09/18 07:55 Respiratory Rate 16 09/09/18 11:35 Respiratory Effort 09/09/18 07:55 Respiratory Depth Normal 09/09/18 07:55 Respiratory Pattern Normal 09/09/18 07:55 Blood Pressure 112/74 09/09/18 11:35 Pulse Oximetry 93 L 09/09/18 11:35 Respiratory End-tidal CO2 33 09/08/18 10:45 Oxygen Delivery Method Room Air 09/09/18 11:35 Oxygen Flow Rate 0 09/09/18 11:35 Pain Level 0 09/09/18 11:35 Intake & Output 09/08/18 09/09/18 09/09/18 23:59 11:59 23:59 Intake Total 1999 1518.333 / 1518.333 Output Total 950 / 1000 825 / 1125 300 / 1125 Balance 1050 / 2250 693.333 / 393.333 -300 / 393.333 Intake: IV 1999 1158.333 / 1158.333 Oral 360 / 360 Output: Urine 950 / 1000 825 / 1125 300 / 1125 Other: Urine Color Yellow Yellow Yellow Urine Appearance Clear Clear Voiding Methods Bedside Commode Bedside Commode Laboratory Results WBC 9.45 k/cumm (4.4-10.8) 09/09/18 06:40 RBC 3.76 m/cumm (4.00-5.20) L 09/09/18 06:40 Hgb 11.1 g/dL (12.0-15.5) L 09/09/18 06:40 Hct 35.4 % (36.0-46.0) L 09/09/18 06:40 MCV 94.1 fL (80-95) 09/09/18 06:40 MCH 29.5 pg (27.0-33.0) 09/09/18 06:40 MCHC 31.4 g/dL (32.0-36.0) L 09/09/18 06:40 RDW 13.2 % (11.7-14.6) 09/09/18 06:40 Plt Count 154 x1000/uL (130-400) D 09/09/18 06:40 MPV 11.8 fL (8.0-11.0) H 09/09/18 06:40 Sodium 142 mmol/L (136-145) 09/09/18 06:40 Potassium 3.8 mmol/L (3.5-5.1) 09/09/18 06:40 Chloride 106 mmol/L (98-107) 09/09/18 06:40 Carbon Dioxide 28.8 mmol/L (21.0-32.0) 09/09/18 06:40 Anion Gap 7.2 mmol/L (3-11) 09/09/18 06:40 BUN 16 mg/dL (7-18) 09/09/18 06:40 Creatinine 0.70 mg/dL (0.55-1.02) 09/09/18 06:40 Estimated GFR/1.73 m2 >= 60.00 (mL/min/1.73m2) 09/09/18 06:40 Glucose 126 mg/dL (70-100) H 09/09/18 06:40 Calcium 8.3 mg/dL (8.5-10.1) L 09/09/18 06:40
--- NOTE | 2018-09-09 15:30 | PDOC.CMDIS ---
- If Service Date Differs Date of service: 09/09/18 Time of Service: 15:30 LACE Index Scoring Tool - Questions: Length of Stay (in days): 1 Acuity (Admit via E.D.?): No E.D. Visits: 0 - Answers: Total Score: 1 Risk of Readmission: Low Risk Care Management Discharge Reason for Hospitalization: Right Total Knee Arthroplasty Discharge Plan: Lluvia will be discharged home and receive PT on an outpatient basis. She will follow up with her PCP and surgeon and prescribed plan of care. Patient/Family Education Needs: Discharge plan, limitations, follow up plan of care, Ask me Three.
== END 2018-09-09 13:41 | disposition home or self-care (01) | DRG 470 ==
LOC: PDS 05:57 → MS 10:07
PROVIDERS: Admitting Provider Orthopaedic Surgery; PCP Family Medicine; Visit Provider Orthopaedic Surgery
PROC: 0SRC0J9 Replacement of Right Knee Joint with Synthetic Substitute, Cemented, Open Approach (ICD-10-PCS; CPT 27447; principal; 2018-09-08 07:30)
DX: M17.11 Unilateral primary osteoarthritis, right knee (principal); Z96.651 Presence of right artificial knee joint; R50.82 Postprocedural fever; M24.561 Contracture, right knee; M21.161 Varus deformity, not elsewhere classified, right knee
CPT/HCPCS: 27447; 36415; 80048; 85027; 97110; 97162; 97530; NC; 73560; J0690; J1100; J1650; J1885; J2250; J2405; J3010; L1830

== ENCOUNTER → 2018-09-16 13:06 | Outpatient (BNVA) | payer MEDICARE, SELFPAY | PROVIDERS: PCP Family Medicine; Referring Provider Family Medicine; Visit Provider Orthopaedic Surgery | DX: Z47.1 Aftercare following joint replacement surgery (principal); Z96.651 Presence of right artificial knee joint ==

== ENCOUNTER → 2018-10-12 10:33 | Outpatient (BNVA) | payer MEDICARE, SELFPAY | PROVIDERS: PCP Family Medicine; Referring Provider Family Medicine; Visit Provider Orthopaedic Surgery | DX: Z47.1 Aftercare following joint replacement surgery (principal); Z96.651 Presence of right artificial knee joint ==

== ENCOUNTER → 2018-12-02 13:07 | Outpatient (BNVA) | payer MEDICARE, SELFPAY | PROVIDERS: Referring Provider Family Medicine; Visit Provider Orthopaedic Surgery | DX: Z47.1 Aftercare following joint replacement surgery (principal); Z96.651 Presence of right artificial knee joint ==

== ENCOUNTER 2020-02-28 14:25 | Outpatient (REF) | payer OTHER, SELFPAY ==
[2020-02-28 19:05] LABS: HCT 41.6 % (36.0-46.0); HGB 13.5 g/dL (11.2-15.7)
[2020-02-28 19:16] LABS: Anion Gap 6.2 mmol/L (3-11); BUN 16 mg/dL (7-18); CO2 31.8 mmol/L (21.0-32.0); CREATININE 0.67 mg/dL (0.55-1.02); Calcium 9.3 mg/dL (8.5-10.1); Chloride 104 mmol/L (98-107); Glucose 89 mg/dL (74-106); Potassium 3.8 mmol/L (3.5-5.1); Sodium 142 mmol/L (136-145)
== END 2020-02-28 14:45 ==
LOC: NCHCN 14:25
PROVIDERS: PCP Family Medicine; Visit Provider Family Medicine
DX: D64.9 Anemia, unspecified (principal); I10 Essential (primary) hypertension
CPT/HCPCS: 80048; 85014; 85018

== ENCOUNTER 2021-04-04 15:08 | Outpatient (REF) | payer MEDICARE, SELFPAY ==
[2021-04-04 20:59] LABS: HCT 40.1 % (36.0-46.0); HGB 12.9 g/dL (11.2-15.7)
[2021-04-05 07:04] LABS: BUN 20 mg/dL (7-18); CREATININE 0.8 mg/dL (0.55-1.02); Calcium 9.9 mg/dL (8.5-10.1); Glucose 90 mg/dL (74-106)
[2021-04-05 07:05] LABS: Anion Gap 7.8 mmol/L (3-11); CO2 30.2 mmol/L (21.0-32.0); Chloride 106 mmol/L (98-107); Potassium 3.6 mmol/L (3.5-5.1); Sodium 144 mmol/L (136-145); TSH (W/Ref FT4) 15.47 uIU/mL (0.36-3.74)
[2021-04-05 09:03] LABS: FREE T4 0.72 ng/dL (0.76-1.46)
== END 2021-04-04 15:09 | disposition home or self-care (01) ==
LOC: NCHCN 15:08
PROVIDERS: PCP Family Medicine; Visit Provider Family Medicine
DX: I10 Essential (primary) hypertension (principal); R53.83 Other fatigue; D64.9 Anemia, unspecified
CPT/HCPCS: 80048; 84439; 84443; 85014; 85018

== ENCOUNTER 2021-06-17 14:42 | Outpatient (REF) | payer MEDICARE, SELFPAY ==
[2021-06-17 21:08] LABS: FREE T4 0.86 ng/dL (0.76-1.46); TSH 9.14 uIU/mL (0.36-3.74)
== END 2021-06-17 14:43 | disposition home or self-care (01) ==
LOC: NCHCN 14:42
PROVIDERS: PCP Family Medicine; Visit Provider Family Medicine
DX: E03.9 Hypothyroidism, unspecified (principal)
CPT/HCPCS: 84439; 84443

== ENCOUNTER 2022-03-04 10:45 | Outpatient (REF) | payer MEDICARE, SELFPAY ==
[2022-03-04 15:55] LABS: Anion Gap 7.9 mmol/L (3-11); BUN 17 mg/dL (7-18); CO2 30.1 mmol/L (21.0-32.0); CREATININE 0.8 mg/dL (0.55-1.02); Chloride 101 mmol/L (98-107); Estimated GFR 73.98 (mL/min/1.73m2); FREE T4 1.01 ng/dL (0.76-1.46); Glucose 99 mg/dL (74-106); Potassium 3.7 mmol/L (3.5-5.1); Sodium 139 mmol/L (136-145); TSH 7.56 uIU/mL (0.36-3.74)
[2022-03-04 16:05] LABS: HCT 41.6 % (36.0-46.0); HGB 13.6 g/dL (11.2-15.7)
== END 2022-03-04 10:46 | disposition home or self-care (01) ==
LOC: NCHCN 10:45
PROVIDERS: PCP Family Medicine; Visit Provider Family Medicine
DX: E03.9 Hypothyroidism, unspecified (principal); I10 Essential (primary) hypertension; D64.9 Anemia, unspecified
CPT/HCPCS: 80048; 84439; 84443; 85014; 85018

== ENCOUNTER 2022-09-02 11:26 | Outpatient (REF) | payer MEDICARE, SELFPAY ==
[2022-09-02 15:31] LABS: HCT 41.9 % (36.0-46.0); HGB 13.7 g/dL (11.2-15.7)
[2022-09-02 16:40] LABS: BUN 12 mg/dL (7-18); CREATININE 0.7 mg/dL (0.55-1.02); Calcium 9.8 mg/dL (8.5-10.1); Chloride 103 mmol/L (98-107); Glucose 98 mg/dL (74-106); Potassium 3.9 mmol/L (3.5-5.1); Sodium 139 mmol/L (136-145); TSH (W/Ref FT4) 7.21 uIU/mL (0.36-3.74)
[2022-09-02 17:03] LABS: FREE T4 0.97 ng/dL (0.76-1.46)
== END 2022-09-02 11:27 | disposition home or self-care (01) ==
LOC: NCHCN 11:26
PROVIDERS: PCP Family Medicine; Visit Provider Family Medicine
DX: E03.9 Hypothyroidism, unspecified (principal); D64.9 Anemia, unspecified; I10 Essential (primary) hypertension
CPT/HCPCS: 80048; 84439; 84443; 85014; 85018

== ENCOUNTER 2023-04-18 18:40 | Emergency (ER) | payer MEDICARE, SELFPAY ==
[2023-04-18] VITALS (38 sets, daily range): BP systolic 110–195; BP diastolic 71–100; PULSE 61–103; RESP 11–24; O2SAT 96–100
--- NOTE | 2023-04-18 18:45 | DI.RAD_ITS ---
Exam(s) XR PORTABLE CHEST AP EXAM: XR PORTABLE CHEST AP CLINICAL HISTORY: intubated, ams TECHNIQUE: 2D digital imaging was performed of the chest. One image was obtained. An AP view was ob tained. COMPARISON: CR CHEST 2 VIEWS PA,LAT from 12/25/2009 FINDINGS: The tip of the endotracheal tube is in the right mainstem bronchus. It should be retracted and repo sitioned. MEDIASTINUM: Normal. HEART: Cardiomegaly. PULMONARY VASCULATURE: Normal. LUNGS: There is an opacity seen in the left lung base. No focal infiltrates are seen in the right sy ng. PLEURAL SPACE: No pleural effusion or pneumothorax. BONE:Within normal limits for the patient's age. OTHER FINDINGS:The tip of the of an enteric tube is seen in the proximal esophagus. IMPRESSION: 1. Intubation of the right mainstem bronchus. The endotracheal tube should be retracted approximatel y 5 cm. 2. Opacity seen in the left inferior lung. This is incompletely evaluated due to patient positioning . 3. Cardiomegaly. 4. Tip of the enteric tube is seen in the proximal esophagus. DATA REPOSITORY: RADIATION DOSE DELIVERED:
--- NOTE | 2023-04-18 18:45 | RT.EKG_ITS ---
APPROVED REPORT Exam: Resting ECG Reason for Exam: [facility] Patient Location: E HR:68 bpm ECG Measurements Heart Rate 68 AXIS AL 164 P 75 QRSd 88 QRS 64 QT 441 T 15 QTc 469 Conclusion Sinus rhythm...normal P axis, V-rate 60- 99 Atrial premature complex...SV complex w/ short R-R interval Probable left atrial enlargement...P >50mS, <-0.10mV V1 sinus rhtyhm, normal axis normal intervals, non ischemic
--- NOTE | 2023-04-18 18:45 | DI.CT_ITS ---
Exam(s) CT HEAD - STROKE PROTOCOL EXAM: CT HEAD - STROKE PROTOCOL CLINICAL HISTORY: ams, fall in shower, concern for ICH. TECHNIQUE: Imaging Protocol: Axial computed tomography images with coronal and sagittal reformatted images were created and reviewed COMPARISON: No exams were available for comparison FINDINGS: Ventricles and Extra axial spaces: There is a large amount of intraventricular hemorrhage present in the lateral, 3rd and 4th ventricles. The ventricular system appears enlarged suggesting superimposed hydrocephalus. There is a 2.1 by 2.3 x 3.2 cm heterogeneous hyperdense mass in the region of the le ft cerebellar pontine angle suspicious for calcified meningioma. There is mass effect on the adjacen t brainstem. There is subarachnoid hemorrhage throughout the skull-base cisterns and sulci in the an terior and middle cranial fossa. Hemorrhage: On the right, there is a 2.4 x 3.3 x 1.8 cm hyperdense masslike area at the skull base. It may be intraparenchymal in the region of the thalamus. However in its location an aneurysm, mass or extra-axial hematoma should also be considered. There is leftward displacement of the 3rd ventric le. Cerebral parenchyma: There is decreased attenuation seen in the brainstem and jt suspicious for sup erimposed ischemia. There are areas of decreased attenuation in the white matter consistent with sma ll vessel ischemic disease. Midline shift: Leftward shift of the midline at the level of the 3rd ventricle. Brainstem/Cerebellum: Decreased attenuation seen in V brainstem and jt suspicious for ischemia. Calvarium: Normal. Visualized Paranasal sinuses/Mastoids: Clear. Soft Tissues: Unremarkable. IMPRESSION: 1. Large amount of intraventricular and subarachnoid hemorrhage. 2. 2.4 x 3.3 x 1.8 cm hyperdense masslike area in the right skull base region. This may represent an intraparenchymal hematoma, aneurysm or mass. MRI may be considered for further evaluation. 3. Heterogeneous 2.1 x 3.2 x 2.3 cm hyperdense extra-axial mass in the left cerebellopontine angle. The findings are suspicious for partially calcified meningioma. There is a mass effect on the adjace nt brainstem with hypoattenuation seen in the midbrain, jt and brainstem suspicious for dict acute ischemia. RADIATION DOSE DELIVERED: Total DLP DATA REPOSITORY: All CT scans at this facility are submitted to the National Radiology Data Registry (NRDR) Dose Index Registry (DIR) with the [employer] (ACR). RADIATION OPTIMIZATION: All CT scans at this facility use at least one of these dose optimization te chniques: automated exposure control; mA and/or kV adjustment per patient size (includes targeted exa ms where dose is matched to clinical indication); or iterative reconstruction.
[2023-04-18] MEDS: Normal Saline 1,000 ML 1000 ML IV (18:47)
[2023-04-18] MEDS: Etomidate 20 MG/10 ML VIAL IVP (18:47)
[2023-04-18] MEDS: Succinylcholine 200 MG/10 ML VIAL 120 MG IVP (18:49)
[2023-04-18] MEDS: PROPOFOL 1,000 MG/100 ML BTL 5.166 MG IV (18:52)
[2023-04-18] MEDS: levETIRAcetam 500 MG/5 ML VIAL (18:56)
[2023-04-18] MEDS: levETIRAcetam 1,000 MG in Normal Saline 100 ML 400 MG IVPB ×2 (18:56→21:40)
--- NOTE | 2023-04-18 19:00 | DI.RAD_ITS ---
Exam(s) XR PELVIS AP EXAM: XR PELVIS AP CLINICAL HISTORY: fall in shower. TECHNIQUE: 2D digital imaging was performed. One image was obtained. COMPARISON: No exams were available for comparison FINDINGS: BONES: No acute fracture is present. No bony destructive lesion is seen. JOINTS: No dislocation present. Degenerative changes are seen in the hips and lower lumbar spine. Th ere also degenerative changes seen in the sacroiliac joints. SOFT TISSUE: Normal. IMPRESSION: No acute fracture or dislocation. DATA REPOSITORY: RADIATION DOSE DELIVERED:
--- NOTE | 2023-04-18 19:01 | ED.GENADUL_ITS ---
Discharge Plan Disposition Patient Disposition: Home Condition: Serious Discharge Details Clinical Impression: Subarachnoid hemorrhage, Cerebral mass, AMS (altered mental status) Primary Care Provider: Kelsey Hernandez V ED Provider: Gino Mayo Home Meds and New Rx's Prescriptions: No Action lisinopril-hydrochlorothiazide 20-25 mg tablet 1 tab PO DAILY aspirin [Roxy Low Dose Aspirin] 81 MG tablet,delayed release (DR/EC) 81 mg PO DAILY citalopram [Celexa] 20 MG tablet 20 mg PO DAILY omeprazole 20 MG capsule,delayed release(DR/EC) 20 mg PO DAILY multivitamin 1 EACH capsule 1 ea PO DAILY cholecalciferol (vitamin D3) [Vitamin D3] 1,000 unit Capsule 1,000 unit PO .NOON Medical Decision Making 82-year-old female with history of osteoarthritis, anemia, heard her fall but told initially she was responsive to him upon his arrival stopped responding during EMS transport, blood sugar normal in the field, patient trumpet and nonrebreather applied, sonorous respirations upon arrival, unequal pupils right greater than left, no opening eyes spontaneously, no verbal response, not responding to verbal or physical stimuli, suspicion for intrace rebral hemorrhage, patient intubated for airway protection and clinical course, loaded with a gram of Keppra, started on propofol drip, noted to be severely hypertensive 199/100 on arrival, goal BP will be 140 systolic with a MAP of 65; patient sent for stat CT CTA head and neck, PT/INR, will require stat consultation with [facility] neurosurgical team pending imaging results. Patient is not on any anticoagulation however she is on aspirin. 20: 49 ET tube retracted given right mainstem component seen on x-ray, repeat xray performed, patient mainting oxygenation. Equal breath sounds. On hold drip for sedation which is also helping with her blood pressure, current BP 136/96 heart rate of 73 oxygen saturation 96%. Awaiting callback from [facility] neurosurgical team. 21: [address] Blanchard of neurosurgery at [facility], patient be transferred for further care, excepting physician emergency medicine physician ; will continue with goal BP of 140 systolic, will load to a full 2 gram keppra bolus. [facility] is in route. Will obtain CTA before departure. Family aware of plan. HPI General Date/Time Provider Initiated Documentation: 04/18/23 18:58 . HPI Narrative: 82-year-old female brought in by EMS, family found patient after she had possibly fallen in the shower, patient was initially speaking to family now nonverbal, sonorous respirations and route noticed by EMS, unequal pupils noted by EMS, normal fingerstick in the field, per family patient is not a blood thinner however her med list does show that she is on aspirin. Related Data Home Medications Medication Instructions Recorded Confirmed Roxy Low Dose Aspirin 81 mg 81 mg PO DAILY 04/07/17 10/12/18 tablet,delayed release (aspirin) Celexa 20 mg tablet (citalopram) 20 mg PO DAILY 04/07/17 10/12/18 multivitamin 1 ea PO DAILY 04/07/17 10/12/18 omeprazole 20 mg capsule,delayed 20 mg PO DAILY 04/07/17 10/12/18 release lisinopril 20 1 tab PO DAILY 08/11/18 10/12/18 mg-hydrochlorothiazide 25 mg tablet cholecalciferol (vitamin D3) 25 1,000 unit PO .NOON 08/26/18 10/12/18 mcg (1,000 unit) capsule (Vitamin D3) Allergies Allergy/AdvReac Type Severity Reaction Status Date / Time No Known Allergies Allergy Verified 09/08/18 06:14 Review of Systems Narrative: Review of Systems Constitutional: Altered mental status Eyes: negative ENT: negative Cardiovascular: negative Respiratory: negative Gastrointestinal: negative : negative Musculoskeletal: negative Skin: negative Neurologic: negative Psych: negative PFSH All Active Problems (Updated 04/18/23 @ 21:11 by Gino Mayo MD) AMS (altered mental status) (Acute) Cerebral mass (Acute) Subarachnoid hemorrhage (Acute) History of total right knee replacement (Acute) Primary osteoarthritis of right knee (Chronic) Pre-operative examination (Acute) Medical History (Updated 04/18/23 @ 21:11 by Gino Mayo MD) H/O cardiac murmur PT. STATES SHE WAS TOLD SHE HAS A HEART MURMUR BY KELSEY HERNANDEZ 09/08/18 Anxiety GI bleed Anemia Surgical History (Updated 12/02/18 @ 13:11 by Priscilla Morris) History of esophagogastroduodenoscopy (EGD) History of colonoscopy Family History Other Heart disease Social History (Updated 08/26/18 @ 10:02 by Maddie Garcia RN) Smoking/Tobacco Use Status: Former Tobacco Use Smoking risk assessment performed?: Yes Drug use: Never Exam Narrative Exam Narrative: Physical Examination General: Somnolent, sonorous respirations HEENT: normocephalic, atraumatic; anisocoria right pupil greater than left Neck: supple, trachea midline Chest: normal to inspection Respiratory: Sonorous respirations, currently on nonrebreather, nasal trumpet in place Cardiac: regular rate, regular rhythm, S1S2 intact, no murmurs rubs or gallops GI: abdomen soft, non-tender, non-distended; no palpable mass or hepatosplenomegaly Skin: no lesions, rashes or trauma appreciated Neuro: Not opening eyes spontaneously, not responding to verbal stimuli, minimal response to painful stimuli Procedures Intubation Time out performed: Yes sedative: Etomidate Mg Given: 25 paralytic: Succinylcholine Mg Given: 130 Laryngoscope: Danielle ET Tube Size: 7.5 ET Tube Uncuffed: Yes Tube Secured Depth (cm): 24 Tube Secured Location: lips Tube Placement Confirmation: visualized tube passing through cords, equal breath sounds bilaterally and no breath sounds over epigastrum Patient Tolerated Procedure: well Intubation Complications: none Critical Care Time Critical Care Time Critical Care Time: Yes Total Critical Care Time: 30 Attestation: Critical care time spent at bedside assessing patient interpreting labs interpreting imaging, intubating patient, coordinating specialty care in patient with subarachnoid hemorrhage altered mental status requiring transfer to tertiary care center for acute neurosurgical care
[2023-04-18 19:17] LABS: BE (Venous) 5 mmol/L (-2-3); HCO3 (Venous) 30 mmol/L (23-28); O2 Sat (Venous) 85 %; TCO2 (Venous) 28 mmol/L (24-29); pCO2 (Venous) 54 mmHg (41-51); pH (Venous) 7.36 (7.31-7.41); pO2 (Venous) 50 mmHg
[2023-04-18 19:21] LABS: Abs Immature Grans 0.05 10^3/uL (0.0-0.06); Absolute Basophil Count 0.03 10^3/uL (0.0-0.2); Absolute Eosinophil Count 0.21 10^3/uL (0.0-0.7); Absolute Lymphocyte Count 2.24 10^3/uL (1.2-3.4); Absolute Monocyte Count 0.54 10^3/uL (0.1-0.8); Absolute Neutrophil Count 6.87 10^3/uL (1.2-6.7); Basophils % 0.3; Eosinophils % 2.1; HCT 38.8 % (36.0-46.0); HGB 12.8 g/dL (11.2-15.7); Immature Grans % 0.5; Lymphocytes % 22.5; MCV 91 fL (80-95); MPV 11.6 fL (8.0-11.0); Monocytes % 5.4; Neutrophils % 69.2; Platelet Count 189 10^3/uL (130-400); RBC 4.26 10^6/uL (3.93-5.22); RDW 12.7 % (11.7-14.6); RDW-SD 42.1 fL; WBC 9.94 10^3/uL (4.4-10.8)
[2023-04-18 19:29] LABS: Bilirubin Negative (Negative); Blood Trace-lysed (Negative); Clarity Cloudy (Clear); Glucose Negative (Negative); Ketones Negative (Negative); Leukocyte Esterase Negative (Negative); Nitrite Negative (Negative); Specific Gravity >= 1.030 (1.005-1.025); Urobilinogen 0.2 mg/dL (Up to 0.2); pH 6.5 (5-8)
[2023-04-18] MEDS: fentaNYL 100 MCG/2 ML VIAL (19:30)
[2023-04-18 19:34] LABS: INR 1.1 (0.9-1.1); PTT Activated 20.7 sec (23.6-32.8); Prothrombin Time 10.6 sec (9.1-11.1)
[2023-04-18 19:36] LABS: Bacteria Few HPF (Negative); Crystals Few Amorphous HPF (Negative); Epithelial Cells Few HPF (Negative); Mucus Trace (Negative); RBC 0-2 HPF (0-2)
[2023-04-18 19:37] LABS: C & S Indicated? Yes; Casts 0-2 Hyaline LPF (Negative)
[2023-04-18 19:44] LABS: ALT 22 U/L (14-59); AST 22 U/L (15-37); Albumin 3.7 g/dL (3.4-5.0); Alkaline Phosphatase 65 U/L (46-116); Anion Gap 4.1 mmol/L (3-11); BUN 16 mg/dL (7-18); Bilirubin, Total 0.3 mg/dL (0.2-1.0); CO2 30.9 mmol/L (21.0-32.0); CREATININE 0.7 mg/dL (0.55-1.02); Chloride 102 mmol/L (98-107); ETHANOL BLOOD < 3.0 mg/dL (<10); Glucose 152 mg/dL (74-106); Magnesium 1.9 mg/dL (1.8-2.4); Potassium 3.5 mmol/L (3.5-5.1); Sodium 137 mmol/L (136-145); TSH (W/Ref FT4) 17.82 uIU/mL (0.36-3.74); Total Protein 7.1 g/dL (6.4-8.2)
--- NOTE | 2023-04-18 19:45 | DI.RAD_ITS ---
Exam(s) XR PORTABLE CHEST AP EXAM: XR PORTABLE CHEST AP CLINICAL HISTORY: post intubation, right mainstem on initial TECHNIQUE: 2D digital imaging was performed of the chest. One image was obtained. An AP view was ob tained. COMPARISON: CR,XR XR PORTABLE CHEST AP from 04/18/2023 FINDINGS: The endotracheal tube tip still appears to lie within the proximal right mainstem bronchus and should be retracted 2-3 cm. The endotracheal tube tip is seen near the gastroesophageal junction and shoul d be advanced at least 3 or 4 cm into the stomach. MEDIASTINUM: Normal. HEART: Cardiomegaly. PULMONARY VASCULATURE: Normal. LUNGS: Increased opacity seen in the left lung base. The right lung is clear. PLEURAL SPACE: No pleural effusion or pneumothorax. BONE:Within normal limits for the patient's age. OTHER FINDINGS:There is elevation of the right hemidiaphragm. IMPRESSION: 1. The tip of the endotracheal 2 still appears to lie within the proximal right mainstem bronchus and should be retracted 2-3 cm. 2. The enteric tube tip is at the gastroesophageal junction and should be advanced 3-[address] omach. 3. Opacity in the left lower lobe. Mass, atelectasis or pneumonia. DATA REPOSITORY: RADIATION DOSE DELIVERED:
[2023-04-18 19:46] LABS: *AMPHETAMINES SCREEN URINE Negative (Negative); *BARBITURATES SCREEN URINE Negative (Negative); *BENZODIAZEPINES SCREEN URINE Negative (Negative); Cannabinoids THC Negative (Negative); Cocaine Screen,Urine Negative (Negative); METHADONE URINE SCREEN Negative (Negative); OPIATES URINE SCREEN Negative (Negative)
[2023-04-18 19:49] LABS: Tricyclic Antidepressants Negative (Negative)
[2023-04-18 20:00] LABS: FREE T4 0.94 ng/dL (0.76-1.46)
--- NOTE | 2023-04-18 20:08 | DI.VRAD_ITS ---
Addendum created by Kanu Kessler MD on 04/18/2023 8:14:38 PM EST: This case was discussed personally with Gino Capellan at 8:14 PM EST on 04/18/2023. Initial report created on 04/18/2023 8:08:08 PM EST: PROCEDURE INFORMATION: Exam: CT Head Without Contrast Exam date and time: 04/18/2023 7:24 PM Age: 82 years old Clinical indication: Other: AMS, fall, concern for ich TECHNIQUE: Imaging protocol: Computed tomography of the head without contrast. COMPARISON: No relevant prior studies available. FINDINGS: Brain: There is a 2.4 cm x 3.3 cm x 1.8 cm heterogeneous hyperdense extra-axial masslike finding at the right skull base on image 25 of series 3. A large hematoma, aneurysm, or mass could have this appearance. There is gross mass effect with distortion and leftward displacement of the 3rd ventricle. There is a large amount of subarachnoid hemorrhage throughout the skull base cisterns and inferior cortical sulci. There is a 2.1 cm x 3.2 cm x 2.3 cm heterogeneous but partially hyperdense extra-axial mass in the left cerebellar pontine angle cistern on image 17 of series 3 with an appearance most suspicious for a partially calcified meningioma but with gross mass effect on the brainstem with severe morphologic deformity of the jt and hypoattenuation throughout the midbrain, jt, and brainstem suspicious for superimposed ischemia. The melchor-white matter differentiation appears grossly preserved, as seen. Cerebral ventricles: There is a large amount of intraventricular hemorrhage in the lateral, 3rd, and 4th ventricles. The ventricular system is somewhat larger than expected suggesting developing superimposed hydrocephalus. Paranasal sinuses: The paranasal sinuses appear well aerated. No air-fluid levels are seen. Mastoid air cells: The mastoid air cells appear well-aerated. Auditory system: The middle ear cavities appear clear. Orbital cavities: The globes and intraorbital structures appear grossly intact. Oral cavity: There is intravenous gas at the skull base, in the left hearing aid fitter space, and in the left temporal scalp. Bones/joints: The bony calvarium appears intact. No depressed skull fracture is seen. Soft tissues: No gross focal scalp hematoma is seen. Other findings: Endotracheal and orogastric catheters are partially demonstrated. IMPRESSION: 1. 2.4 cm x 3.3 cm x 1.8 cm heterogeneous hyperdense extra-axial masslike finding at the right skull base on image 25 of series 3. Gross associated mass effect with distortion and leftward displacement of the 3rd ventricle. A large hematoma, aneurysm, or mass could have this appearance. Further evaluation is recommended. 2. Large amount of acute subarachnoid hemorrhage largely filling the skull base cisterns and inferior cortical sulci. 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 3. 2.1 cm x 3.2 cm x 2.3 cm heterogeneous but hyperdense extra-axial mass in the left cerebellopontine angle cistern. The appearance and location are suspicious for a large partially calcified meningioma; however, there is severe associated mass effect with gross morphologic distortion of the brainstem. Further, parenchymal hypoattenuation throughout the midbrain, jt, and brainstem raise concern for acute ischemia. Further evaluation is recommended. Dictated and Authenticated by: Kanu Kessler MD. Ordering:CATARINO Christian MD
--- NOTE | 2023-04-18 20:21 | DI.VRAD_ITS ---
PROCEDURE INFORMATION: Exam: XR Chest Exam date and time: 04/18/2023 7:35 PM Age: 82 years old Clinical indication: Other: Intubated, AMS TECHNIQUE: Imaging protocol: Radiologic exam of the chest. Views: 1 view. COMPARISON: No relevant prior studies available. FINDINGS: Limitations: The lateral aspect of the left lower lung zone, left lower chest wall, and left costophrenic angle are excluded from view. Tubes, catheters and devices: There is an endotracheal catheter in-situ terminating approximately 3 cm beyond the yolanda in the right mainstem bronchus. This catheter could be pulled back approximately 4 cm. An orogastric catheter enters from above and terminates in the expected location of the upper thoracic esophagus. Lungs: There is masslike opacity projecting over the left mid lung zone, not well evaluated. Otherwise, no gross focal pulmonary consolidation is seen. Pleural spaces: No right-sided pleural effusion is demonstrated. The left cardiophrenic angle is located outside the field of view. No pneumothorax is demonstrated. Heart/Mediastinum: The heart appears enlarged. Bones/joints: The visualized bony structures appear grossly unremarkable, as seen. There are osteophytes along the thoracic margin. IMPRESSION: 1. Intubation of the right mainstem bronchus. The endotracheal catheter should be pulled back approximately 4-5 cm. 2. Orogastric catheter in-situ, terminating in the upper thoracic esophagus. 3. Masslike opacity projecting over the left mid lung zone, partially excluded from view and not well evaluated. 4. Enlarged heart. Dictated and Authenticated by: Kanu Kessler MD. Ordering:CATARINO Christian MD
--- NOTE | 2023-04-18 20:25 | DI.VRAD_ITS ---
Addendum created by Kanu Kessler MD on 04/18/2023 8:40:51 PM EST: This case was discussed personally with Gino Capellan at 8:40 PM EST on 04/18/2023. Initial report created on 04/18/2023 8:24:39 PM EST: PROCEDURE INFORMATION: Exam: XR Chest Exam date and time: 04/18/2023 8:01 PM Age: 82 years old Clinical indication: Device placement; Ett placement (vent status); Patient HX: Post intubation, right mainstem on initial TECHNIQUE: Imaging protocol: Radiologic exam of the chest. Views: 1 view. COMPARISON: CR XR PORTABLE CHEST AP 04/18/2023 7:35 PM FINDINGS: Tubes, catheters and devices: An orogastric catheter has been advanced since the prior exam and now terminates in the expected location of the stomach, approximately 4 cm distal to the gastroesophageal junction. This catheter should be advanced further into the stomach prior to use. There is an endotracheal catheter in-situ, terminating in the right mainstem bronchus approximately 1.4 cm beyond the yolanda. This catheter should be pulled back approximately 2-3 cm. Lungs: Increased opacity is redemonstrated over the left mid lung zone. Otherwise, no pulmonary consolidation is seen. Pleural spaces: Within the limits of the exam, no pleural effusion or pneumothorax is demonstrated. Heart/Mediastinum: Cardiac monitoring leads overlie the exam. The heart appears enlarged. Diaphragm: There is elevation of the right hemidiaphragm. Bones/joints: The visualized bony structures appear grossly intact, as seen. There are osteophytes along the thoracic margin. Degenerative changes are present at the acromioclavicular joints bilaterally. IMPRESSION: 1. Persistent right mainstem bronchus intubation. The endotracheal catheter should be pulled back approximately 2-3 cm. 2. Increased opacity over the left mid lung zone, redemonstrated. 3. Orogastric catheter advanced into the stomach, terminating approximately 4 cm distal to the gastroesophageal junction. This catheter should be advanced further into the stomach prior to use. Dictated and Authenticated by: Kanu Kessler MD. Ordering:CATARINO Christian MD
--- NOTE | 2023-04-18 20:27 | DI.VRAD_ITS ---
PROCEDURE INFORMATION: Exam: XR Pelvis Exam date and time: 04/18/2023 7:33 PM Age: 82 years old Clinical indication: Other: Fall TECHNIQUE: Imaging protocol: Radiologic exam of the pelvis. Views: 1 or 2 view. COMPARISON: No relevant prior studies available. FINDINGS: Bones/joints: AP views of the pelvis reveal no acute fracture or dislocation. Degenerative change is noted at the pubic symphysis. Soft tissues: Within the limits of the exam, no gross focal soft tissue abnormality is demonstrated. Gastrointestinal tract: The visualized bowel gas pattern appears unremarkable. IMPRESSION: No acute fracture or dislocation seen in the pelvis. Dictated and Authenticated by: Kanu Kessler MD. Ordering:CATARINO Christian MD
--- NOTE | 2023-04-18 21:00 | DI.CT_ITS ---
Exam(s) CT BRAIN NECK CTA EXAM: CT BRAIN NECK CTA CLINICAL HISTORY: concern for aneurysm ICH. TECHNIQUE: Imaging Protocol: Axial CT angiography was performed with multi-slice acquisition and mu lti-planar and/or 3D reconstructions. CONTRAST MATERIAL: Intravenous: Omnipaque 350 contrast volume:70 mL COMPARISON: CT CT HEAD - STROKE PROTOCOL from 04/18/2023 FINDINGS: CT Head w: Ventricles and Extra axial spaces: There is persistent diffuse intraventricular hemorrhage involving the 4th, 3rd and lateral ventricles with dilatation of the low ventricles suggesting hydrocephalus. Subarachnoid hemorrhage is seen in the can in the suprasellar cistern in the anterior cranial fossa. Hemorrhage: Please see the section above under ventricles and extra-axial spaces. Cerebral parenchyma: There is again seen decreased attenuation in the jt and brainstem suggesting e casandra. There are areas of decreased attenuation in the white matter most consistent with small vessel ischemic disease. Midline shift: None. Brainstem/Cerebellum: Normal. Calvarium: Normal. Visualized Paranasal sinuses/Mastoids: Clear. Soft Tissues: Unremarkable. Enhancement: There is a 3.5 cm left posterior cranial fossa mass most suggestive of incidental mening ioma. There is effacement of the adjacent midbrain due to the size of the mass. CTA Neck W: Common Carotid: Mild atherosclerosis at the origins of both common carotid arteries. Right: No dissection, occlusion or significant stenosis. Left: No dissection, occlusion or significant stenosis. External Carotid: Right: No occlusion or significant stenosis. Left: No occlusion or significant stenosis. Internal Carotid: There is atherosclerosis at the origins of both internal carotid arteries. Right: No dissection, occlusion or significant stenosis. Left: No dissection, occlusion or significant stenosis. Vertebral Artery: Right: No dissection, occlusion or significant stenosis. Left: No dissection, occlusion or significant stenosis. Lung Apices: Note is made of a large hiatal hernia. There is coronary artery calcification. The asc ending thoracic aorta measures 4.2 x 4.4 cm. Portions of both endotracheal and enteric tubes are pre sent. The endotracheal tube terminates in the right mainstem bronchus and should be retracted 3-4 cm . Bones:Within normal limits for the patient's age. Soft Tissues: Normal. Thyroid gla small thyroid nodule in the left lobe. No follow-up is recommended. D: Unremarkable. CTA Brain W: Internal Carotid Arteries: There is a 1.5 cm right cavernous ICA aneurysm. There is a 2.5 cm supracl inoid right internal carotid aneurysm. There does appear to be a 7 mm left internal carotid artery a neurysm. Anterior Cerebral Arteries: Right: No aneurysm, occlusion or significant stenosis. Left: No aneurysm, occlusion or significant stenosis. Middle Cerebral Arteries: Right: No aneurysm, occlusion or significant stenosis. Left: No aneurysm, occlusion or significant stenosis. Posterior Cerebral Arteries: Right: No aneurysm, occlusion or significant stenosis. Left: No aneurysm, occlusion or significant stenosis. Vertebral Arteries: Right: No aneurysm, occlusion or significant stenosis. Left: No aneurysm, occlusion or significant stenosis. Basilar Artery: No aneurysm, occlusion or significant stenosis. IMPRESSION: 1. Multiple intracranial aneurysms. The largest is a 2.5 cm supraclinoid right ICA aneurysm. 2. Intracranial hemorrhage as described in unchanged from the examination from earlier in the day. 3. The endotracheal tube tip terminates in the right mainstem bronchus and should be retracted 3-4 cm . 4. No occlusion or significant stenosis on the CT angiography of the neck. RADIATION DOSE DELIVERED: Total DLP DATA REPOSITORY: All CT scans at this facility are submitted to the National Radiology Data Registry (NRDR) Dose Index Registry (DIR) with the [employer] (A[employer]). RADIATION OPTIMIZATION: All CT scans at this facility use at least one of these dose optimization te chniques: automated exposure control; mA and/or kV adjustment per patient size (includes targeted exa ms where dose is matched to clinical indication); or iterative reconstruction.
[2023-04-18] MEDS: Normal Saline - Diluent 50 ML VIAL IJ (21:28)
[2023-04-18] MEDS: Omnipaque 350 MG/ML 100 ML BTL IJ (21:29)
--- NOTE | 2023-04-18 21:44 | W.EDPROG ---
Date of service: 04/18/23 Time of Service: 21:44 Medical Decision Making Discussed goals of care with family throughout clinical course. Family comfortable with intubation as well as interventional procedures as needed. Patient is DNR. Callback from neurosurgery requesting hypertonic saline sodium chloride 3% 250 mL bolus [facility] team at bedside. Patient just completed CT angio head and neck. Discharge Plan Disposition Patient Disposition: Home Condition: Serious Discharge Details Clinical Impression: Subarachnoid hemorrhage, Cerebral mass, AMS (altered mental status) Primary Care Provider: Kelsey Hernandez V ED Provider: Gino Mayo Home Meds and New Rx's Prescriptions: No Action lisinopril-hydrochlorothiazide 20-25 mg tablet 1 tab PO DAILY aspirin [Roxy Low Dose Aspirin] 81 MG tablet,delayed release (DR/EC) 81 mg PO DAILY citalopram [Celexa] 20 MG tablet 20 mg PO DAILY omeprazole 20 MG capsule,delayed release(DR/EC) 20 mg PO DAILY multivitamin 1 EACH capsule 1 ea PO DAILY cholecalciferol (vitamin D3) [Vitamin D3] 1,000 unit Capsule 1,000 unit PO .NOON
[2023-04-18] MEDS: SODIUM CHLORIDE 3% 500 ML 250 ML IV (21:50)
--- NOTE | 2023-04-18 22:06 | DI.VRAD_ITS ---
Addendum created by Tootie Boyer MD on 04/18/2023 10:11:29 PM EST: This report contains findings that may be critical to patient care. The pertinent findings were communicated via telephone with Gino Mayo at 22:11 EST on 04/18/2023. The findings were acknowledged and understood. Initial report created on 04/18/2023 10:05:56 PM EST: PROCEDURE INFORMATION: Exam: CTA Head With Contrast, Arteriography Exam date and time: 04/18/2023 21:26 Age: 82 years old Clinical indication: Stroke-like symptoms; Altered mental status/memory loss and other: Concern for aneurysm ich TECHNIQUE: Imaging protocol: Computed tomographic angiography of the head with contrast. Exam focused on the arteries. 3D rendering (Not supervised by radiologist): MIP and/or 3D reconstructed images were created by the technologist. Contrast material: OMNIPAQUE 350; Contrast volume: 70 ml; Contrast route: INTRAVENOUS (IV); COMPARISON: 1. CT BRAIN NECK CTA 04/18/2023 19:[address] HEAD - STROKE PROTOCOL 04/18/2023 7:24 PM FINDINGS: ANTERIOR CIRCULATION: Right internal carotid artery: Multifocal right ICA aneurysms including 15 mm cavernous, 19 mm supraclinoid. Additional smaller aneurysms are possible. Right middle cerebral artery: No occlusion or significant stenosis. No aneurysm. Right anterior cerebral artery: Difficult to exclude a miniscule JARRELL aneurysm. Patent. Left internal carotid artery: Multifocal left ICA aneurysms including 3 mm saccular and distal fusiform 7 mm in diameter. Left middle cerebral artery: No occlusion or significant stenosis. No aneurysm. Left anterior cerebral artery: Difficult to exclude tiny left-sided aneurysm to approximately, distal branches patent. POSTERIOR CIRCULATION: Right vertebral artery: Congenitally diminutive right vertebral artery without occlusion or aneurysm. Left vertebral artery: No occlusion or significant stenosis. No aneurysm. Basilar artery: Mild fusiform dilation of the basilar tip without saccular aneurysm. Right posterior cerebral artery: No occlusion or significant stenosis. No aneurysm. Left posterior cerebral artery: No occlusion or significant stenosis. No aneurysm. Beyond the [id number] intracranial arteries appear somewhat irregular suggesting a component of vaso spasm Brain: Partially calcified left posterior fossa 35 mm mass favors an incidental meningioma. Increasing posterior fossa and supratentorial edema with progressive severe effacement of basilar cisterns and supratentorial sulcal effacement. Cerebral ventricles: Large intraventricular hemorrhage again seen with similar moderate ventriculomegaly. Bones/joints: No acute fracture. Soft tissues: No suspicious lesions. IMPRESSION: 1. No large vessel occlusion. 2. Multiple intracranial aneurysms as above. 3. Large intraventricular hemorrhage again seen with similar moderate ventriculomegaly. 4. Increasing generalized edema, progressive effacement of basilar cisterns. 5. Additional findings as above. PROCEDURE INFORMATION: Exam: CTA Neck With Contrast Exam date and time: 04/18/2023 21:26 Age: 82 years old Clinical indication: Stroke-like symptoms; Altered mental status/memory loss and other: Concern for aneurysm ich TECHNIQUE: Imaging protocol: Computed tomographic angiography of the neck with contrast. Exam focused on the cervical segments of the vasculature. 3D rendering (Not supervised by radiologist): MIP and/or 3D reconstructed images were created by the technologist. Contrast material: OMNIPAQUE 350; Contrast volume: 70 ml; Contrast route: INTRAVENOUS (IV); COMPARISON: CT BRAIN NECK CTA 04/18/2023 19:24 FINDINGS: Tubes, catheters and devices: The endotracheal tube terminates in the right mainstem bronchus and retraction by 3 cm is recommended. NGT in esophagus distal tip not imaged. Right common carotid artery: No significant stenosis. No dissection or occlusion. Right internal carotid artery: Right ICA atherosclerosis without significant stenosis or dissection. Right external carotid artery: No occlusion or significant stenosis. Left common carotid artery: No significant stenosis. No dissection or occlusion. Left internal carotid artery: Left ICA atherosclerosis without significant stenosis or dissection. Proximal left vertebral artery atherosclerosis without significant stenosis or dissection. Left external carotid artery: No occlusion or significant stenosis. Right vertebral artery: No significant stenosis. No dissection or occlusion. Left vertebral artery: See Left internal carotid artery finding. Aorta: 44 mm ascending aortic aneurysm. Thyroid: Probable multinodular goiter. Follow-up as per institutional protocol. Dental: Periodontal disease. Soft tissues: No significant soft tissue swelling. Bones/joints: Degenerative changes in the spine. Heart: Cardiomegaly and large hiatal hernia are partially seen. IMPRESSION: 1. No acute arterial pathology. Patent carotid and vertebral system bilaterally. 2. The endotracheal tube terminates in the right mainstem bronchus and retraction by 3 cm is recommended. 3. Additional findings as described. REFERENCES: NASCET CRITERIA. The degree of stenosis in the cervical segment of the internal carotid artery is based on NASCET criteria. Normal is no stenosis. Mild is less than 50% stenosis. Moderate is 50-69% stenosis. Severe is 70% to 99% stenosis. Total occlusion is no detectable patent lumen. Dictated and Authenticated by: Tootie Boyer MD. Ordering:CATARINO Christian MD
== END 2023-04-18 22:04 | disposition home or self-care (01) ==
PROVIDERS: Emergency Provider Emergency Medicine; PCP Family Medicine
DX: I67.1 Cerebral aneurysm, nonruptured (principal); S06.6XAA Traumatic subarachnoid hemorrhage with loss of consciousness status unknown, initial encounter; I67.9 Cerebrovascular disease, unspecified; W18.2XXA Fall in (into) shower or empty bathtub, initial encounter; Y93.E1 Activity, personal bathing and showering; Y92.012 Bathroom of single-family (private) house as the place of occurrence of the external cause
CPT/HCPCS: 00123; 31500; 51702; 70496; 70498; 80053; 80307; 82805; 82962; 86850; 86900; 86901; 93005; 96361; 96365; 96375; 99285; 70450; 71045; 72170; 80320; 81003; 81015; 83735; 84439; 84443; 85025; 85610; 85730; 87086; 93010; J1953; J3010; J3490